=== PATIENT | female | born 1995 | race Caucasian/White ===

== ENCOUNTER 2018-07-27 04:12 | Emergency (ER) | payer OTHER ==
[2018-07-27] MEDS: ONDANSETRON (ODT) 4 MG TAB ODT (05:42)
[2018-07-27] MEDS: ACETAMINOPHEN 500 MG TAB PO (05:45)
[2018-07-27] MEDS: METHYLPREDNISOLONE 125 MG INJ IM (05:51)
[2018-07-27] MEDS: KETOROLAC 30 MG INJ IM (05:52)
[2018-07-27] MEDS: CEFTRIAXONE 1 GM INJ IM (05:53)
== END 2018-07-27 06:44 | disposition home or self-care (01) ==
LOC: FTE 04:12
DX: J03.90 Acute tonsillitis, unspecified (principal); J32.9 Chronic sinusitis, unspecified
CPT/HCPCS: 81025; 96372; 99284-25